=== PATIENT | male | born 1940 | race Caucasian/White ===

== ENCOUNTER 2016-11-29 17:27 | Inpatient (IN) ==
[2016-11-29] MEDS ORDERED: 0.9 % Sodium Chloride 1,000 ML IVC ONE ×2 (17:29→18:20)
[2016-11-29] MEDS ORDERED: Ipratropium/Albuterol Neb 3 ML IH ONE (17:32)
--- NOTE | 2016-11-29 17:32 | Emergency Department Note ---
Disposition Clinical Impression: Sepsis syndrome, Elevated lactic acid level, Alcoholic ketoacidosis, Hypoglycemia Acute renal failure Qualifiers: Acute renal failure type: unspecified Qualified Code(s): N17.9 - Acute kidney failure, unspecified Alcohol intoxication Qualifiers: Complication of substance-induced condition: uncomplicated Qualified Code(s): F10.120 - Alcohol abuse with intoxication, uncomplicated Disposition: Admitted As Inpatient Condition: Fair Referrals: Aretha Whittington, [employer] [Primary Care Provider] - Forms: Work/School Release, ED Satisfaction Letter General Adult HPI - General Chief complaint: ED General Medical Stated complaint: alcohol intake Time Seen by Provider: 11/29/16 17:29 Source: patient, EMS Mode of arrival: EMS Limitations: altered mental status, physical limitation, age Nursing Notes Reviewed: Yes Vital Signs Reviewed: Yes - History of Present Illness HPI Narrative: Patient was on the floor and his hot trailer. A friend called EMS for his evaluation. He reportedly had 2 large bottles of vodka nearby and his friend had said that he had been drinking heavily daily. The patient has reported no pain but indicated he had not been able to get up for hours. History is limited on this patient with his trach and decreased verbal ability. He is able to answer yes no questions well. He denies headache, visual changes or shortness of breath. He has had a cough. He denies chest pain, abdominal pain , vomiting or diarrhea. He denies any pain to his head, neck, back, upper extremities or to his lower extremities. Patient was saturating at about 78% for the squad. They have had him on a mask with high flow and he is continued with similar saturations. It appears on arrival that most of his respiration is via his tracheal stoma. Onset (ago): hour(s) Pain Scale: 0 Improves with: nothing Worsens with: nothing Associated symptoms: Reports: malaise, shortness of breath, weakness. Denies: confusion, chest pain, cough, diaphoresis, fever/chills, headaches, loss of appetite, nausea/vomiting, rash, seizure, syncope Treatments Prior to Arrival: none - Related Data Home Medications Medication Instructions Recorded Confirmed Amiodarone [Cordarone] 200 mg GTUBE BID 03/20/15 04/21/16 Aspirin 81 mg GTUBE DAILY 03/20/15 04/21/16 Metoprolol [Lopressor] 25 mg GTUBE BID 03/20/15 11/29/16 Ferrous Sulfate [Iron] 325 mg GTUBE DAILY 11/29/16 11/29/16 Levothyroxine [Synthroid] 125 mcg GTUBE DAILY@0630 11/29/16 11/29/16 Lisinopril [Zestril] 10 mg GTUBE DAILY 11/29/16 11/29/16 Previous Rx's Medication Instructions Recorded ALPRAZolam [Xanax 0.5 MG Tablet] 0.5 mg PO Q6H PRN #12 tablet 04/11/16 Azithromycin [Zithromax] 250 mg PO DAILY #5 tablet 04/11/16 Cefuroxime PO [Ceftin] 500 mg PO Q12HR #10 tablet 04/11/16 Lactobacillus [Culturelle] 1 each PO BID #10 cap.sprink 04/11/16 Allergies Allergy/AdvReac Type Severity Reaction Status Date / Time No Known Allergies Allergy Verified 10/04/15 15:14 All systems ED: reviewed and negative except as stated. Past Medical History - Past Medical History Attestation: Yes The following information was validated with the patient. Source: patient, old records reviewed, nursing notes reviewed Medical history: Reports: arthritis, atrial fibrillation, cancer, COPD, coronary artery disease, hypertension, myocardial infarction, other Surgical history: Reports: orthopedic, other, pacemaker/AICD, other ( Tracheostomy, G-tube) Psychiatric history: Reports: no psych history - Social History Smoking Status: Former smoker Smokeless Tobacco Status: No Alcohol use: Reports: heavy, recent Drug use: Reports: none Physical Exam - General Limitations: physical limitation, age General appearance: alert, appears intoxicated - Head Head exam: atraumatic, normocephalic, normal inspection - Eye Eye exam: Present: normal appearance, PERRL, EOMI. Absent: scleral icterus, conjunctival injection - ENT ENT exam: normal exam, normal oropharynx, mucous membranes moist - Neck Neck exam: Present: full ROM, other (There is a lot of dried yellow mucus around his tracheal stoma. There is a lot of also a lot of dry mucous down across the left upper chest.) - Chest Chest inspection: Present: normal inspection, symmetric chest wall rise. Absent : tenderness - Respiratory Respiratory exam: Present: prolonged expiratory phase, other (Rattling respiration auscultation consistent with the tracheal secretions heard at bedside.). Absent: respiratory distress, wheezes - Cardiovascular Cardiovascular exam: Present: tachycardia, irregular rhythm, normal heart sounds - Abdominal Exam Abdominal exam: Present: soft, Non-Tender, normal bowel sounds, other (G-tube intact without any inflammation or drainage.). Absent: tenderness, distention, guarding, rebound, rigidity - Extremities Exam Extremities exam: Present: normal inspection, full ROM, normal capillary refill , other (Patient holds the right leg slightly externally rotated. He has no pain with passive or active range of motion with either lower extremity. Similarly he is able to move both upper extremities were without difficulty with motion nor pain with palpation.). Absent: tenderness, pedal edema, calf tenderness - Expanded Lower Extremity Exam Neurovascular/Tendon exam: Present: normal capillary refill. Absent: motor deficit, sensory deficit, tendon deficit Gait: not tested/not observed - Back Exam Back exam: Present: normal inspection, full ROM. Absent: tenderness, vertebral tenderness - Neurological Exam Neurological exam: Present: alert. Absent: motor sensory deficit - Psychiatric Psychiatric exam: Present: normal affect, normal mood - Skin Skin exam: Present: warm, dry, intact, normal color. Absent: cyanosis, diaphoresis Course Course Narrative: 174: With tracheal suctioning and applying oxygen across his tracheostomy stoma , his saturations up to 95%, heart rate 85 and blood pressure 98/53. Copious respiratory secretions have been suctioned. 182: With return of lab, EKG and imaging, it is clear the patient will need to be admitted for continued hydration to correct his metabolic status. He will need to be watched closely for alcohol withdrawal. With the elevated white count, lactic acid and as well as Rocephin and azithromycin. A page has been placed to Dr. Mckeon for the inpatient care of this patient. Vital Signs Temperature 98.2 F 11/29/16 17:29 Pulse Rate 88 11/29/16 17:29 Respiratory Rate 24 11/29/16 17:29 Blood Pressure 92/48 11/29/16 17:29 O2 Sat by Pulse Oximetry 80 11/29/16 17:29 Temperature 98.2 F 11/29/16 17:29 Pulse Rate 88 11/29/16 17:29 Respiratory Rate 24 11/29/16 17:29 Blood Pressure 92/48 11/29/16 17:29 O2 Sat by Pulse Oximetry 80 11/29/16 17:29 Oxygen Delivery Oxygen Delivery Nasal Cannula Medical Decision Making - Medical Records Medical records reviewed: Yes I reviewed the patient's medical records. - Lab Data Lab results reviewed: Yes I reviewed the patient's lab results. Result diagrams: 11/29/16 17:40 11/29/16 17:40 Lab Results 11/29/16 11/29/16 11/29/16 Range/Units 17:40 17:40 17:40 WBC 19.9 H (4.3-11.1) K/mcL RBC 3.72 L (4.19-5.50) M/mcL Hgb 13.2 (12.9-16.9) g/dL Hct 39.2 (37.5-50.1) % MCV 105.4 H (83.0-100.0) fL MCH 35.5 H (28.0-33.3) pg MCHC 33.7 (31.6-35.5) g/dL RDW 13.8 (11.5-14.5) % Plt Count 282 (140-400) K/mcL MPV 10.8 (9.4-12.4) fL Immature Gran % 0.8 (0-4) % Seg Neutrophils % 92.2 % Lymphocytes % 1.4 % Monocytes % 5.4 % Eosinophils % 0.0 % Basophils % 0.2 % Neutrophils # 18.4 H (1.6-8.9) K/mcL Lymphocytes # 0.3 L (0.6-4.6) K/mcL Monocytes # 1.1 (0.0-1.3) K/mcL Eosinophils # 0.0 (0.0-0.6) K/mcL Basophils # 0.0 (0.0-0.2) K/mcL PT 10.9 (9.4-12.1) Seconds INR 1.0 APTT 29.1 (26.0-36.0) Seconds ABG pH (7.32-7.45) pH Units ABG pCO2 (35-45) mmHg ABG pO2 (85-104) mmHg ABG HCO3 (21-27) mEQ/L ABG Total CO2 (20-26) mEq/L ABG O2 Saturation (95-98) % ABG Base Excess (-2.0 to 3.0) mEq/L VBG Lactic Acid (0.5-2.2) mmol/L Respiration Rate Liter Flow L/MIN Blood Gas Modality Sodium 138 (136-145) mEq/L Potassium 4.7 H (3.5-4.5) mEq/L Chloride 97 L (98-109) mEq/L Carbon Dioxide 15 L (19-29) mEq/L BUN 32 H (8-26) mg/dL Creatinine 1.80 H (0.72-1.25) mg/dL Est GFR ( Amer) 44 L (> 60) Est GFR (Non-Af Amer) 37 L (> 60) BUN/Creatinine Ratio 18 (6-26) Glucose 43 L (70-99) mg/dL Calculated Osmolality 290 (280-300) Calcium 8.8 (8.6-10.8) mg/dL Total Bilirubin 1.1 (0.2-1.2) mg/dL Direct Bilirubin 0.5 (0.0-0.5) mg/dL Indirect Bilirubin 0.6 (0.0-1.2) mg/dL AST 57 H (5-34) Units/L ALT 33 (0-55) Units/L Alkaline Phosphatase 99 (38-126) Units/L Creatine Kinase (30-200) Units/L Troponin I (0-0.03) ng/mL Serum Total Protein 7.3 (6.0-8.3) g/dL Albumin 3.5 (3.5-5.0) g/dL Globulin 3.8 H (2.4-3.5) g/dL Albumin/Globulin Ratio 0.9 L (1.1-2.2) Ethyl Alcohol 324 H (0-10) mg/dL 11/29/16 11/29/16 11/29/16 Range/Units 17:40 17:40 17:40 WBC (4.3-11.1) K/mcL RBC (4.19-5.50) M/mcL Hgb (12.9-16.9) g/dL Hct (37.5-50.1) % MCV (83.0-100.0) fL MCH (28.0-33.3) pg MCHC (31.6-35.5) g/dL RDW (11.5-14.5) % Plt Count (140-400) K/mcL MPV (9.4-12.4) fL Immature Gran % (0-4) % Seg Neutrophils % % Lymphocytes % % Monocytes % % Eosinophils % % Basophils % % Neutrophils # (1.6-8.9) K/mcL Lymphocytes # (0.6-4.6) K/mcL Monocytes # (0.0-1.3) K/mcL Eosinophils # (0.0-0.6) K/mcL Basophils # (0.0-0.2) K/mcL PT (9.4-12.1) Seconds INR APTT (26.0-36.0) Seconds ABG pH (7.32-7.45) pH Units ABG pCO2 (35-45) mmHg ABG pO2 (85-104) mmHg ABG HCO3 (21-27) mEQ/L ABG Total CO2 (20-26) mEq/L ABG O2 Saturation (95-98) % ABG Base Excess (-2.0 to 3.0) mEq/L VBG Lactic Acid 6.1 H* (0.5-2.2) mmol/L Respiration Rate Liter Flow L/MIN Blood Gas Modality Sodium (136-145) mEq/L Potassium (3.5-4.5) mEq/L Chloride (98-109) mEq/L Carbon Dioxide (19-29) mEq/L BUN (8-26) mg/dL Creatinine (0.72-1.25) mg/dL Est GFR ( Amer) (> 60) Est GFR (Non-Af Amer) (> 60) BUN/Creatinine Ratio (6-26) Glucose (70-99) mg/dL Calculated Osmolality (280-300) Calcium (8.6-10.8) mg/dL Total Bilirubin (0.2-1.2) mg/dL Direct Bilirubin (0.0-0.5) mg/dL Indirect Bilirubin (0.0-1.2) mg/dL AST (5-34) Units/L ALT (0-55) Units/L Alkaline Phosphatase (38-126) Units/L Creatine Kinase 61 (30-200) Units/L Troponin I 0.02 (0-0.03) ng/mL Serum Total Protein (6.0-8.3) g/dL Albumin (3.5-5.0) g/dL Globulin (2.4-3.5) g/dL Albumin/Globulin Ratio (1.1-2.2) Ethyl Alcohol (0-10) mg/dL 11/29/16 Range/Units 18:00 WBC (4.3-11.1) K/mcL RBC (4.19-5.50) M/mcL Hgb (12.9-16.9) g/dL Hct (37.5-50.1) % MCV (83.0-100.0) fL MCH (28.0-33.3) pg MCHC (31.6-35.5) g/dL RDW (11.5-14.5) % Plt Count (140-400) K/mcL MPV (9.4-12.4) fL Immature Gran % (0-4) % Seg Neutrophils % % Lymphocytes % % Monocytes % % Eosinophils % % Basophils % % Neutrophils # (1.6-8.9) K/mcL Lymphocytes # (0.6-4.6) K/mcL Monocytes # (0.0-1.3) K/mcL Eosinophils # (0.0-0.6) K/mcL Basophils # (0.0-0.2) K/mcL PT (9.4-12.1) Seconds INR APTT (26.0-36.0) Seconds ABG pH 7.23 L (7.32-7.45) pH Units ABG pCO2 39 (35-45) mmHg ABG pO2 55 L (85-104) mmHg ABG HCO3 16.6 L (21-27) mEQ/L ABG Total CO2 17.8 L (20-26) mEq/L ABG O2 Saturation 83 L (95-98) % ABG Base Excess -10.9 L (-2.0 to 3.0) mEq/L VBG Lactic Acid (0.5-2.2) mmol/L Respiration Rate 22 Liter Flow 2.5 L/MIN Blood Gas Modality T mask Sodium (136-145) mEq/L Potassium (3.5-4.5) mEq/L Chloride (98-109) mEq/L Carbon Dioxide (19-29) mEq/L BUN (8-26) mg/dL Creatinine (0.72-1.25) mg/dL Est GFR ( Amer) (> 60) Est GFR (Non-Af Amer) (> 60) BUN/Creatinine Ratio (6-26) Glucose (70-99) mg/dL Calculated Osmolality (280-300) Calcium (8.6-10.8) mg/dL Total Bilirubin (0.2-1.2) mg/dL Direct Bilirubin (0.0-0.5) mg/dL Indirect Bilirubin (0.0-1.2) mg/dL AST (5-34) Units/L ALT (0-55) Units/L Alkaline Phosphatase (38-126) Units/L Creatine Kinase (30-200) Units/L Troponin I (0-0.03) ng/mL Serum Total Protein (6.0-8.3) g/dL Albumin (3.5-5.0) g/dL Globulin (2.4-3.5) g/dL Albumin/Globulin Ratio (1.1-2.2) Ethyl Alcohol (0-10) mg/dL - Radiology Data Radiology results reviewed: Yes I reviewed the patient's radiology results. Single view chest x-ray is performed. This demonstrated some patchy interstitial infiltrates and likely left-sided effusion. There is tenderness or pneumothorax, heart failure or abnormal cardiac silhouette. This is underlying interpretation. Impressions Chest X-Ray 11/29/16 17:29 IMPRESSION: Stable appearance to the chest demonstrating diffuse increased interstitial markings suggesting a chronic interstitial lung process. No acute cardiopulmonary process is evident. D/ / 11/29/2016 18:16:53 Phani Harley MD / [email or web address] Interpreting Provider: Phani Harley MD - EKG Data EKG #1 EKG attestation: Yes I reviewed and interpreted this EKG. EKG shows normal: axis, intervals, ST-T waves Rate: tachycardia (102) Rhythm: A.Fib Terry/QRS: IVCD Interpretation: no acute changes Critical Care Time Critical Care Time: Yes Total Critical Care Time: 50 Attestation: As this patient did present with signs and symptoms of potential life- threatening illness requiring my urgent intervention, total critical care time in this patient's care has been 50 minutes, not withstanding separately reportable procedures.
[2016-11-29] MEDS ORDERED: *HR* Dextrose 50 % in Water (Syg) 50 ML SYRINGE IVP ONE (17:38)
[2016-11-29 17:49] LABS: Basophils % 0.2 %; Hematocrit 39.2 % (37.5-50.1); Hemoglobin 13.2 g/dL (12.9-16.9); Immature Granulocytes % 0.8 % (0-4); Lymphocytes # 0.3 K/mcL (0.6-4.6); Lymphocytes % 1.4 %; Mean Corpuscular HGB Conc 33.7 g/dL (31.6-35.5); Mean Corpuscular Hemoglobin 35.5 pg (28.0-33.3); Mean Corpuscular Volume 105.4 fL (83.0-100.0); Mean Platelet Volume 10.8 fL (9.4-12.4); Monocytes # 1.1 K/mcL (0.0-1.3); Monocytes % 5.4 %; Neutrophils # 18.4 K/mcL (1.6-8.9); Platelet Count 282 K/mcL (140-400); Red Blood Count 3.72 M/mcL (4.19-5.50); Red Cell Distribution Width 13.8 % (11.5-14.5); Segmented Neutrophils % 92.2 %
[2016-11-29 17:54] LABS: Prothrombin Time 10.9 Seconds (9.4-12.1)
[2016-11-29 17:57] LABS: Activated Partial Thrombo Time 29.1 Seconds (26.0-36.0)
[2016-11-29 18:07] LABS: Albumin 3.5 g/dL (3.5-5.0); Albumin/Globulin Ratio 0.9 (1.1-2.2); Bilirubin,Direct 0.5 mg/dL (0.0-0.5); Bilirubin,Indirect 0.6 mg/dL (0.0-1.2); Bilirubin,Total 1.1 mg/dL (0.2-1.2); Calcium 8.8 mg/dL (8.6-10.8); Globulin 3.8 g/dL (2.4-3.5); Potassium 4.7 mEq/L (3.5-4.5); Total Protein 7.3 g/dL (6.0-8.3)
[2016-11-29 18:11] LABS: ABG Base Excess -10.9 mEq/L (-2.0 to 3.0); ABG HCO3 16.6 mEQ/L (21-27); ABG Oxygen Saturation 83 % (95-98); ABG PCO2 39 mmHg (35-45); ABG PH 7.23 pH Units (7.32-7.45); ABG PO2 55 mmHg (85-104); ABG TCO2 17.8 mEq/L (20-26)
[2016-11-29 18:12] LABS: Blood Gas Liter Flow 2.5 L/MIN; Blood Gas Respiration Rate 22
[2016-11-29] MEDS ORDERED: Azithromycin 500 MG in D5% in Water 250 ML IVPB SCH (18:17)
[2016-11-29] MEDS ORDERED: 0.9 % Sodium Chloride 1,000 ML IVC SCH (18:30)
[2016-11-29] MEDS ORDERED: Dextrose Gel 15 GM PO PRN ×2 (19:42)
[2016-11-29] MEDS ORDERED: Ondansetron 4 MG/2 ML VIAL IVP PRN (19:42)
[2016-11-29] MEDS ORDERED: *HR* LORazepam 2 MG/ML VIAL IVP PRN (19:42)
[2016-11-29] MEDS ORDERED: D5% in Water 1,000 ML IVC PRN (19:42)
[2016-11-29] MEDS ORDERED: *HR* Promethazine 25 MG/ML VIAL IVP PRN (19:42)
[2016-11-29] MEDS ORDERED: Naloxone 0.4 MG/ML INJ IVP PRN (19:42)
[2016-11-29] MEDS ORDERED: *HR* Dextrose 50 % in Water (Syg) 50 ML SYRINGE IVP PRN (19:42)
[2016-11-29] MEDS: 0.9 % Sodium Chloride 1,000 ML IVC SCH (22:33)
[2016-11-30 06:05] LABS: BUN/Creatinine Ratio 25 (6-26); Blood Urea Nitrogen 24 mg/dL (8-26); Calcium 7.7 mg/dL (8.6-10.8); Carbon Dioxide 17 mEq/L (19-29); Chloride 105 mEq/L (98-109); Glucose 52 mg/dL (70-99); Osmolality,Calculated 289 (280-300); Potassium 4.3 mEq/L (3.5-4.5); Sodium 139 mEq/L (136-145); eGFR For African Americans > 60 (> 60); eGFR For Non-African Americans > 60 (> 60)
[2016-11-30] MEDS: 0.9 % Sodium Chloride 1,000 ML IVC SCH (06:14)
[2016-11-30] MEDS ORDERED: Pantoprazole 40 MG VIAL IVP SCH (07:30)
[2016-11-30] MEDS ORDERED: Ferrous Sulfate Oral Soln 300 MG/5 ML UDC GTUBE SCH (10:00)
--- NOTE | 2016-11-30 12:00 | Internal Med History&Physical ---
Date of Encounter: 11/30/16 Time of Encounter: 11:30 Assessment and Plan (1) Neutrophilic leukocytosis Current visit: No Status: Acute He has been started on Rocephin and Zithromax. I will add lactobacillus. Repeat chest CT will be done to follow-up on abnormalities seen on the March 2016 scan. (2) Alcohol intoxication Current visit: No Status: Acute We will give scheduled Xanax to lessen withdrawal. Qualifiers: Complication of substance-induced condition: uncomplicated Qualified Code(s ): F10.120 - Alcohol abuse with intoxication, uncomplicated (3) Macrocytosis Current visit: No Status: Chronic We will check TSH in a.m. B12 and folate were normal on 01/10/2015. (4) Elevated TSH Current visit: No Status: Acute As above (5) Acute renal failure Current visit: Yes Status: Acute Improved. Continue IV fluids and monitoring renal indices. Qualifiers: Acute renal failure type: unspecified Qualified Code(s): N17.9 - Acute kidney failure, unspecified (6) Hypoglycemia Current visit: Yes Status: Acute We will restart tube feedings and monitor blood sugar. Internal Medicine - H&P: HPI Chief complaint: Intoxication, infection Admitted From: Home Plans for Post Hospital Care: Home History of present illness: Mr. Bee is a 76 year old male who was brought to the emergency room after he was found on the floor of his home with decreased responsiveness. The emergency room report states there were empty vodka bottles beside him. He was found to have blood alcohol level of 324 mg percent and leukocytosis with left shift in emergency room. He was admitted to [facility] floor for ongoing care needs. He states he ingests vodka 2-3 times per week per G-tube. 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 He has an open stoma in his lower anterior neck and cannot phonate. He indicates he has soreness in his right anterolateral rib area. Past Med Surg Social Fam HX - Past Medical History Medical history: arthritis, atrial fibrillation, cancer, COPD, coronary artery disease, hypertension, myocardial infarction, other Psychiatric history: no psych history - Past Surgical History Surgical History: orthopedic, other, pacemaker/AICD, other - Social History Smoking Status: Former smoker Smokeless Tobacco Status: No Alcohol use: heavy, recent Drug use: none Internal Medicine - H&P: Meds Amiodarone [Cordarone] 200 mg GTUBE BID 03/20/15 [History] Aspirin 81 mg GTUBE DAILY 03/20/15 [History] Metoprolol [Lopressor] 25 mg GTUBE BID 03/20/15 [History] ALPRAZolam [Xanax 0.5 MG Tablet] 0.5 mg PO Q6H PRN #12 tablet 04/11/16 [Rx] Azithromycin [Zithromax] 250 mg PO DAILY #5 tablet 04/11/16 [Rx] Cefuroxime PO [Ceftin] 500 mg PO Q12HR #10 tablet 04/11/16 [Rx] Lactobacillus [Culturelle] 1 each PO BID #10 cap.sprink 04/11/16 [Rx] Ferrous Sulfate [Iron] 325 mg GTUBE DAILY 11/29/16 [History] Levothyroxine [Synthroid] 125 mcg GTUBE DAILY@0630 11/29/16 [History] Lisinopril [Zestril] 10 mg GTUBE DAILY 11/29/16 [History] Allergies No Known Allergies Allergy (Verified 10/04/15 15:14) All Systems PM: A 10-system review of systems was performed and is negative for pertinent findings except as documented above in the HPI. Review of systems: Gen.: His weight has decreased from 77.11 kg at the December 2014 hospitalization to 65.317 kg at present.. Cardiovascular: He has history of atrial fibrillation and uses amiodarone. He has hypertension and known ASHD status post SC 2007 with ICD placed in 2007. He has had left arm DVT in the distant past. He has a diagnosis of heart failure per old chart without further details available. He has not had known pulmonary embolism. Respiratory: He smoked from approximately age [age] up to 3 packs per day. He has COPD and used oxygen by trach mask in the past but states he does not have oxygen in the home any longer. He has an open stoma in his lower anterior neck area. 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 He is presumed cancer free. GI: He has no known disorder of his liver gallbladder or exocrine pancreas. He has a G-tube since he cannot swallow from previous cancer treatment to his neck. He had a G-tube replacement during the January 2015 [facility] hospitalization. : No history of hematuria dysuria or kidney stones Neurologic: No history of large distribution strokes or seizures Endocrine: Has no known diabetes thyroid disease or hyperlipidemia Hematology/oncology: He had squamous cell cancer as per above. He has no other known internal malignancies. He had anemia with workup December 2014 showing no factor deficiency. Anemia has now resolved. Psychiatric: He has no significant anxiety depression or other mental health issues Musk skeletal: He has history of DJD, gout, and vitamin D deficiency. - Constitutional Vitals: Temp Pulse Resp BP Pulse Ox 98.5 F 86 20 122/57 98 11/30/16 06:53 11/30/16 06:53 11/30/16 06:53 11/30/16 06:53 11/30/16 06:53 Exam: Gen.: He is a well-developed lean male who appears in no significant distress HEENT: Head shows left face and neck scarring from past radical neck dissection. Eyes: EOMI. There is no scleral icterus. Mouth: Mucosa is moist. Neck: He has an open stoma in the anterior lower neck with oxygen by trach mask in place. He has scarring and deformity of the left lateral neck area from previous surgery Heart: Tones are difficult to hear. Lungs: He has scattered rhonchi bilaterally. No inspiratory crackles are heard. Abdomen: G-tube is in place in the epigastric area. The abdomen is nontender to palpation Extremities: He has no cyanosis edema or clubbing noted. He is wearing MEHUL hose bilaterally which I did not remove. He has mild DJD changes of the hands. Neurologic: Mental status: He is able to answer questions by nodding or mouthing the answer. Cranial nerves: He has minimal facial movements. Tongue does not protrude well from past surgical changes. EOMI. Forehead wrinkles bilaterally. Motor: There is no pronator drift. Cerebellar: Finger to nose is intact bilaterally. Skin: Warm and dry. Internal Med - H&P Results - Labs CBC & Chem 7: 11/29/16 17:40 11/30/16 05:30 Labs: BMP 11/30/16 05:30 Sodium 139 Potassium 4.3 Chloride 105 Carbon Dioxide 17 L BUN 24 Creatinine 0.96 Glucose 52 L Calcium 7.7 L
[2016-11-30] MEDS ORDERED: Thiamine (B-1) 100 MG, Folic Acid 1 MG, MVI, adult with vitamin K 10 ML in 0.9 % Sodi... IVPB SCH (18:00)
[2016-11-30] MEDS ORDERED: *HR* Warfarin 4 MG TABLET PO SCH (18:00)
[2016-11-30] MEDS: Azithromycin 500 MG in D5% in Water 250 ML IVPB SCH (19:07)
[2016-11-30] MEDS: ALPRAZolam 0.25 MG TABLET GTUBE SCH (21:20)
[2016-11-30] MEDS: Lactobacillus 1 EACH CAP.SPRINK GTUBE SCH (21:20)
[2016-12-01] MEDS: Lactobacillus 1 EACH CAP.SPRINK GTUBE SCH ×3 (05:37→20:46)
[2016-12-01] MEDS: Acetaminophen 325 MG TABLET PO PRN (05:37)
[2016-12-01 06:13] LABS: Basophils % 0.2 %; Hematocrit 32.7 % (37.5-50.1); Immature Granulocytes % 0.6 % (0-4); Lymphocytes # 0.5 K/mcL (0.6-4.6); Lymphocytes % 3.8 %; Mean Corpuscular HGB Conc 33.6 g/dL (31.6-35.5); Mean Corpuscular Hemoglobin 35.4 pg (28.0-33.3); Mean Corpuscular Volume 105.1 fL (83.0-100.0); Monocytes # 1.1 K/mcL (0.0-1.3); Monocytes % 8.2 %; Neutrophils # 11.5 K/mcL (1.6-8.9); Platelet Count 210 K/mcL (140-400); Red Blood Count 3.11 M/mcL (4.19-5.50); Red Cell Distribution Width 14.3 % (11.5-14.5); Segmented Neutrophils % 87.2 %
[2016-12-01 06:36] LABS: Magnesium 1.7 mg/dL (1.6-2.6)
[2016-12-01 06:58] LABS: Thyroid Stimulating Hormone 15.138 mcIU/mL (0.350-4.840)
[2016-12-01] MEDS: ALPRAZolam 0.25 MG TABLET GTUBE SCH ×2 (08:54→20:46)
--- NOTE | 2016-12-01 14:28 | Internal Med Progress Note ---
Date of Encounter: 12/01/16 Time of Encounter: 14:20 - Assessment and plan (1) Neutrophilic leukocytosis Current Visit: No Status: Acute Assessment and plan: December 01. Improved. Continue Rocephin and Zithromax with lactobacillus. The chest CT showed no acute pathology. (2) Alcohol intoxication Current Visit: No Status: Acute Assessment and plan: December 01. Continue scheduled Xanax Qualifiers: Complication of substance-induced condition: uncomplicated Qualified Code(s ): F10.120 - Alcohol abuse with intoxication, uncomplicated (3) Macrocytosis Current Visit: No Status: Chronic Assessment and plan: December 01. TSH was elevated. Will increase Synthroid dose. Question if he was taking it regularly at home. (4) Elevated TSH Current Visit: No Status: Acute Assessment and plan: December 01. As above. (5) Acute renal failure Current Visit: Yes Status: Suspected Assessment and plan: December 01. Resolved. Qualifiers: Acute renal failure type: unspecified Qualified Code(s): N17.9 - Acute kidney failure, unspecified (6) Hypoglycemia Current Visit: Yes Status: Acute Assessment and plan: December 01. Resolved (7) Hypophosphatemia Current Visit: Yes Status: Acute Assessment and plan: December 01. Will order Neutra-Phos and recheck labs in a.m. - Subjective Interval history: December 01. He has no new complaints and states he feels better. - Constitutional Vitals: Temp Pulse Resp BP Pulse Ox 97.0 F L 68 20 120/78 97 12/01/16 14:18 12/01/16 14:18 12/01/16 14:18 12/01/16 14:18 12/01/16 14:18 Exam: He is resting comfortably in bed and appears comfortable. He answers questions appropriately. He states he does not want to go to a jail but wishes to return home. I reviewed his medications and lab results. Internal Medicine: Result - Labs CBC & Chem 7: 12/01/16 05:01 11/30/16 05:30 Labs: Short CBC 12/01/16 Range/Units 05:01 WBC 13.2 H (4.3-11.1) K/mcL Hgb 11.0 L D (12.9-16.9) g/dL Hct 32.7 L (37.5-50.1) % Plt Count 210 (140-400) K/mcL Neutrophils # 11.5 H (1.6-8.9) K/mcL - ABG Interpretation ABG results: ABG ABG pH 7.23 pH Units (7.32-7.45) L 11/29/16 18:00 ABG pCO2 39 mmHg (35-45) 11/29/16 18:00 ABG pO2 55 mmHg (85-104) L 11/29/16 18:00 ABG O2 Saturation 83 % (95-98) L 11/29/16 18:00 PT/INR, D-dimer PT 10.9 Seconds (9.4-12.1) 11/29/16 17:40 - VTE Documentation of Mechanical Device: Graduated compression elastic hosiery Consult Discharge Plan - Plan Referrals: Aretha Whittington, [employer] [Primary Care Provider] - 1 week
--- NOTE | 2016-12-01 16:43 | Electrocardiograph Report ---
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
[2016-12-01] MEDS ORDERED: *HR* Warfarin 2 MG TABLET PO SCH (18:00)
[2016-12-01] MEDS: 0.9 % Sodium Chloride 1,000 ML IVC SCH (19:21)
[2016-12-01] MEDS: Azithromycin 500 MG in D5% in Water 250 ML IVPB SCH (20:47)
[2016-12-02] MEDS: Acetaminophen 325 MG TABLET PO PRN (05:39)
[2016-12-02 05:57] LABS: Basophils % 0.1 %; Eosinophils % 0.4 %; Hematocrit 31.7 % (37.5-50.1); Hemoglobin 10.5 g/dL (12.9-16.9); Immature Granulocytes % 0.4 % (0-4); Lymphocytes # 0.5 K/mcL (0.6-4.6); Lymphocytes % 5.1 %; Mean Corpuscular HGB Conc 33.1 g/dL (31.6-35.5); Mean Corpuscular Hemoglobin 34.9 pg (28.0-33.3); Mean Corpuscular Volume 105.3 fL (83.0-100.0); Mean Platelet Volume 11.2 fL (9.4-12.4); Monocytes # 0.9 K/mcL (0.0-1.3); Monocytes % 8.6 %; Neutrophils # 8.8 K/mcL (1.6-8.9); Platelet Count 178 K/mcL (140-400); Red Blood Count 3.01 M/mcL (4.19-5.50); Red Cell Distribution Width 14.3 % (11.5-14.5); Segmented Neutrophils % 85.4 %
[2016-12-02 06:14] LABS: BUN/Creatinine Ratio 17 (6-26); Blood Urea Nitrogen 9 mg/dL (8-26); Calcium 7.8 mg/dL (8.6-10.8); Carbon Dioxide 23 mEq/L (19-29); Chloride 106 mEq/L (98-109); Glucose 94 mg/dL (70-99); Osmolality,Calculated 288 (280-300); Potassium 3.7 mEq/L (3.5-4.5); Sodium 140 mEq/L (136-145); eGFR For African Americans > 60 (> 60); eGFR For Non-African Americans > 60 (> 60)
[2016-12-02] MEDS: Lactobacillus 1 EACH CAP.SPRINK GTUBE SCH ×2 (09:09→20:08)
[2016-12-02] MEDS: ALPRAZolam 0.25 MG TABLET GTUBE SCH ×2 (09:09→20:08)
--- NOTE | 2016-12-02 14:29 | Discharge Summary ---
Date of Encounter: 12/02/16 Time of Encounter: 14:20 - Discharge Diagnosis (1) Neutrophilic leukocytosis Priority: Primary Status: Acute (2) Alcohol intoxication Priority: Secondary Status: Resolved Qualifiers: Complication of substance-induced condition: uncomplicated Qualified Code(s ): F10.120 - Alcohol abuse with intoxication, uncomplicated (3) Hypothyroid Priority: Secondary Status: Chronic Qualifiers: Hypothyroidism type: unspecified Qualified Code(s): E03.9 - Hypothyroidism , unspecified (4) Macrocytosis Priority: Secondary Status: Chronic (5) Acute renal failure Priority: Secondary Status: Resolved Qualifiers: Acute renal failure type: unspecified Qualified Code(s): N17.9 - Acute kidney failure, unspecified (6) Hypoglycemia Priority: Secondary Status: Resolved (7) Hypophosphatemia Priority: Secondary Status: Resolved - Discharge Medications Prescriptions: ALPRAZolam [Xanax 0.25 MG Tablet] 0.25 mg GTUBE BID #6 tablet Azithromycin [Zithromax Susp] 200 mg PO DAILY #15 ml Cefuroxime Axetil [Ceftin] 250 mg PO BID #60 mls Lactobacillus [Culturelle] 1 each PO BID #6 cap.sprink Levothyroxine [Synthroid] 150 mcg PO DAILY #30 tablet Home Medications: Amiodarone [Cordarone] 200 mg GTUBE BID 03/20/15 [History] Aspirin 81 mg GTUBE DAILY 03/20/15 [History] Metoprolol [Lopressor] 25 mg GTUBE BID 03/20/15 [History] Ferrous Sulfate [Iron] 325 mg GTUBE DAILY 11/29/16 [History] Lisinopril [Zestril] 10 mg GTUBE DAILY 11/29/16 [History] ALPRAZolam [Xanax 0.25 MG Tablet] 0.25 mg GTUBE BID #6 tablet 12/02/16 [Rx] Azithromycin [Zithromax Susp] 200 mg PO DAILY #15 ml 12/02/16 [Rx] Cefuroxime Axetil [Ceftin] 250 mg PO BID #60 mls 12/02/16 [Rx] Lactobacillus [Culturelle] 1 each PO BID #6 cap.sprink 12/02/16 [Rx] Levothyroxine [Synthroid] 150 mcg PO DAILY #30 tablet 12/02/16 [Rx] Allergies/Adverse Reactions: Allergies No Known Allergies Allergy (Verified 10/04/15 15:14) Procedures/tests Complete & Pending: Procedures Performed prior 72 hours Category Date Time Status CT chest wo con [CT] Routine Cat Scan 11/30/16 12:11 Completed Date of admission: 11/29/16 19:42 Primary care physician: Aretha Whittington CNP - Patient Status Disposition: Home Health Service Condition: Fair Functional capacity at discharge: uses cane/walker Overall status at discharge: patient is progressing back to baseline - Discharge Instructions Follow Up With: Aretha Whittington CNP [Primary Care Provider] - 1 week - Diet and Activity Activity: resume usual activities as tolerated Diet: advance to your usual diet Hospital course: Mr. Bee is a 76 year old male who was brought to the emergency room after he was found on the floor of his home with decreased responsiveness. The emergency room report states there were empty vodka bottles beside him. He was found to have blood alcohol level of 324 mg percent and leukocytosis with left shift in emergency room. He was admitted to [facility] for ongoing care needs. Initial orders were written by the emergency room physician. I saw him on November 30 and performed a history and physical. He was started on Rocephin and Zithromax with lactobacillus. Chest CT showed no acute pathology. He had clinical improvement with WBC normalizing to 10.3 K and segs decreasing to 85.4 % on December 02. He will continue with Ceftin and Zithromax with lactobacillus for 3 additional days after discharge. He was given IV fluids and his azotemia resolved with BUN and creatinine being 9 and 0.54 respectively on the day of discharge. He was able tolerate tube feedings of Jevity without difficulty. TSH returned elevated at 15.138. His Synthroid dose was increased to 150 g daily. Lactic acid returned to normal at level of 1.7 on November 30. Hemoglobin decreased slightly to 10.5 with IV fluids. Anemia testing showed serum iron 36, transferrin saturation 15%, transferrin 170, and ferritin 433. He declined offers to be placed in a correction facility. He stated he wanted to go home. He will be discharged to follow with his PCP within one week. - Time Spent with Patient Total time spent providing and/or coordinating discharge services: - Constitutional Vitals: Temp Pulse Resp BP Pulse Ox 97.3 F L 66 18 154/86 99 06/20/17 11:23 12/02/16 11:23 12/02/16 11:23 12/02/16 11:23 12/02/16 11:23 - VTE Documentation of Mechanical Device: Graduated compression elastic hosiery
--- NOTE | 2016-12-02 14:48 | Physician Discharge Referral ---
Home Health/Hosp Referral Info Transfer to: Home Health Attending Provider: Mike Provider in Charge Post Discharge: PCP (Aretha Whittington CNP) - Diagnosis (1) Neutrophilic leukocytosis Priority: Primary Status: Acute (2) Alcohol intoxication Priority: Secondary Status: Resolved (3) Hypothyroid Priority: Secondary Status: Chronic (4) Macrocytosis Priority: Secondary Status: Chronic (5) Acute renal failure Priority: Secondary Status: Resolved (6) Hypoglycemia Priority: Secondary Status: Resolved (7) Hypophosphatemia Priority: Secondary Status: Resolved - Respiratory Orders Oxygen / L per min (Trach mask oxygen as at home.) Smoking Cessation: Smoking cessation has been advised. For more information, call the [place] Tobacco Quit Line at 9-793-FCOG-NOW. - Activity Activity Orders: Ambulate - Services Needed Following services are medically necessary services: Nursing, Home Health Aide, Physical Therapy, Occupational Therapy - Transfer Medications Prescriptions: ALPRAZolam [Xanax 0.25 MG Tablet] 0.25 mg GTUBE BID #6 tablet Azithromycin [Zithromax Susp] 200 mg PO DAILY #15 ml Cefuroxime Axetil [Ceftin] 250 mg PO BID #60 mls Lactobacillus [Culturelle] 1 each PO BID #6 cap.sprink Levothyroxine [Synthroid] 150 mcg PO DAILY #30 tablet Home Medications: Amiodarone [Cordarone] 200 mg GTUBE BID 03/20/15 [History] Aspirin 81 mg GTUBE DAILY 03/20/15 [History] Metoprolol [Lopressor] 25 mg GTUBE BID 03/20/15 [History] Ferrous Sulfate [Iron] 325 mg GTUBE DAILY 11/29/16 [History] Lisinopril [Zestril] 10 mg GTUBE DAILY 11/29/16 [History] ALPRAZolam [Xanax 0.25 MG Tablet] 0.25 mg GTUBE BID #6 tablet 12/02/16 [Rx] Azithromycin [Zithromax Susp] 200 mg PO DAILY #15 ml 12/02/16 [Rx] Cefuroxime Axetil [Ceftin] 250 mg PO BID #60 mls 12/02/16 [Rx] Lactobacillus [Culturelle] 1 each PO BID #6 cap.sprink 12/02/16 [Rx] Levothyroxine [Synthroid] 150 mcg PO DAILY #30 tablet 12/02/16 [Rx] Allergies/Adverse Reactions: Allergies No Known Allergies Allergy (Verified 10/04/15 15:14) Certification: Further, I certify that my clinical findings support that this patient is homebound (i.e. absences from home require considerable and taxing effort and are for medical reasons or nondenominational services or infrequently or short duration when for other reasons) because: Homebound Reason: Leaving home requires considerable and taxing effort due to condition (COPD, impaired walking ability.) Attestation: My signature below is to certify that this patient is under my care and that I, or nurse practitioner, or a physician's children's nursery assistant working with me, has a face-to -face encounter with this patient.
[2016-12-02] MEDS: Azithromycin 500 MG in D5% in Water 250 ML IVPB SCH (19:09)
[2016-12-02 20:37] VITALS: BP 128/70
== END 2016-12-02 21:00 | disposition home health service (06) | DRG 683 ==
LOC: EMEROOPIK 17:27 → INPPIK 17:27
PROVIDERS: ADMIT Internal Medicine; ATTEND Internal Medicine

== ENCOUNTER 2017-01-16 07:34 | Observation (INO) ==
--- NOTE | 2017-01-16 07:44 | Emergency Department Note ---
Disposition Clinical Impression: History of fall, Multiple contusions, History of alcohol abuse Fracture of humerus Qualifiers: Encounter type: initial encounter Fracture type: closed Fracture morphology: unspecified fracture morphology Fracture alignment: displaced Laterality: left Qualified Code(s): S42.212A - Fractured elbow Qualifiers: Encounter type: initial encounter Fracture type: closed Laterality: left Qualified Code(s): S42.402A - Unspecified fracture of lower end of left humerus , initial encounter for closed fracture Fracture, ankle Qualifiers: Encounter type: initial encounter Fracture type: closed Laterality: right Qualified Code(s): S82.891A - Other fracture of right lower leg, initial encounter for closed fracture Disposition: Admitted As Inpatient Condition: Fair [facility] HPI - General Chief Complaint: ED Extremity Injury, Upper Stated Complaint: pain to left elbow, fall Time Seen by Provider: 01/16/17 07:42 Source: patient, EMS Mode of arrival: EMS Limitations: physical limitation, age Nursing Notes Reviewed: Yes Vital Signs Reviewed: Yes - History of Present Illness HPI Narrative: Patient has been brought in this morning by EMS with complaint of pain in the lateral right ankle and also pain to left upper extremity and left upper extremity disuse. He reportedly had been intoxicated on alcohol yesterday evening and had been trying transfer from his wheelchair and fell. He was able to be helped up into bed. This morning he had more pain to his left arm with disuse in the right ankle pain prompting his transport in for evaluation. He denies head pain or injury to his head. He denies neck pain, back pain, chest pain, shortness breath or abdominal pain. His history is limited given his very difficult speech with a tracheostomy. He will move his arm and his legs around to demonstrate that they have full range of motion with exception of left arm. He holds down at his side. He will move the left wrist without difficulty, the left elbow with distance from of the right arm and resists any motion of the right shoulder. Patient has a long history of alcoholism and will take vodka through his G-tube. Pt Subjective Complaint: fall Onset (ago): hour(s) (12) Fall From: wheelchair Fall Witnessed: yes Place Fall Occurred: home Loss of Consciousness: none Symptoms Prior to Fall: none Context: tripped/slipped, alcohol use, history of frequent falls Location of injury - extremities: Left: shoulder, elbow, Right: ankle Severity: moderate Quality: dull, aching Associated symptoms (after fall): Denies: headache, neck pain, numbness, weakness, chest pain, shortness of breath, abdominal pain, hematuria, lightheaded, vertigo, confusion - Related Data Home Medications Medication Instructions Recorded Confirmed Amiodarone [Cordarone] 200 mg GTUBE BID 03/20/15 01/16/17 Aspirin 81 mg GTUBE DAILY 03/20/15 01/16/17 Metoprolol [Lopressor] 25 mg GTUBE BID 03/20/15 01/16/17 Lisinopril [Zestril] 10 mg GTUBE DAILY 11/29/16 01/16/17 Previous Rx's Medication Instructions Recorded Levothyroxine [Synthroid] 150 mcg PO DAILY #30 tablet 12/02/16 ALPRAZolam [Xanax 0.25 MG Tablet] 0.25 mg GTUBE BID #60 tablet 01/16/17 HYDROcodone/Acet 5/325 mg [[place] 1 tab GTUBE Q4H PRN #120 tab 01/16/17 5-325 mg] Allergies Allergy/AdvReac Type Severity Reaction Status Date / Time No Known Allergies Allergy Verified 01/16/17 07:36 All systems ED: reviewed and negative except as stated. Fall PMH - Past Medical History Medical history: Reports: arthritis, atrial fibrillation, cancer, COPD, coronary artery disease, hypertension, myocardial infarction, other Surgical history: Reports: orthopedic, other, pacemaker/AICD, other Psychiatric history: Reports: no psych history - Social History Smoking Status: Former smoker Alcohol use: Reports: heavy, recent Drug use: Reports: none Physical Exam - General Limitations: physical limitation General appearance: alert, in no apparent distress - Head Head exam: atraumatic, normocephalic, normal inspection, other (Small abrasion on the left anterior scalp.) - Eye Eye exam: Present: normal appearance, PERRL, EOMI. Absent: scleral icterus, conjunctival injection - ENT ENT exam: normal exam, normal oropharynx, mucous membranes moist - Neck Neck exam: Present: normal inspection, full ROM, trachea midline. Absent: tenderness - Chest Chest inspection: Present: normal inspection, symmetric chest wall rise - Respiratory Respiratory exam: Present: normal lung sounds bilaterally, other (Moderate amount of yellow mucus from the patient's tracheostomy site.). Absent: respiratory distress, wheezes, prolonged expiratory phase - Cardiovascular Cardiovascular exam: Present: regular rate, normal rhythm, tachycardia, normal heart sounds - Abdominal Exam Abdominal exam: Present: soft, Non-Tender, normal bowel sounds, other (Patient has a G-tube intact in his abdomen.). Absent: tenderness, distention, guarding , rebound, rigidity - Expanded Upper Extremity Exam Shoulder exam: Present: normal inspection, other (Patient is with some tenderness to the anterior lateral aspect of the left deltoid region. There is reduced abduction, internal and external rotation. There is no overt deformity. There is no bruising present.). Absent: full ROM Elbow exam: Present: normal inspection, full ROM (Passive). Absent: tenderness , swelling, deformity, pain w/ pronation/supination, tenderness over radial head Forearm/Wrist exam: Present: normal inspection, full ROM. Absent: tenderness, swelling Hand exam: Present: normal inspection, full ROM. Absent: tenderness, swelling Vascular exam: Normal: capillary refill, radial pulse - Expanded Lower Extremity Exam Lower leg exam: Present: normal inspection, full ROM. Absent: tenderness, swelling Ankle exam: Present: normal inspection, full ROM, tenderness (Mild over the lateral side of the right ankle.). Absent: swelling, ecchymosis, deformity Foot/toe exam: Present: normal inspection, full ROM. Absent: tenderness, swelling, deformity Neurovascular/Tendon exam: Present: normal capillary refill. Absent: motor deficit, sensory deficit, tendon deficit Gait: not tested/not observed - Back Exam Back exam: Present: normal inspection, full ROM. Absent: tenderness, vertebral tenderness - Neurological Exam Neurological exam: Present: alert. Absent: motor sensory deficit - Psychiatric Psychiatric exam: Present: normal affect, normal mood - Skin Skin exam: Present: warm, dry, intact, normal color. Absent: diaphoresis, pallor Course Course Narrative: 08: The patient has an outstanding case with Adult Protective Services with an email from December 19 indicating they were contacted on over he comes to the emergency department. They have been working on emergent placement for his safety. We have paged to the adult protective counselor conductor symphonic orchestra to see if they have any plans for him. - Reevaluation(s) Reevaluation #1: Examination of the male reveals poorly kept male with large amount of green phlegm mucous secretions over the anterior chest region with swelling of the left arm pain at the shoulder and at the elbow on examination his Plus to 4 radial ulnar pulses noted he has decreased range of motion patient also has pain with palpation at the ankle joint with swelling and edema his lungs are coarse with rhonchi some of this is transmitted from the tracheal region heart regular rate and rhythm abdomen is soft. Positive bowel sounds as result of fractures the patient will be admitted for observation Adult Protective Services has been contacted hospital social worker physical therapy occupational therapy also consulted Vital Signs Temperature 98.6 F 01/16/17 07:36 Pulse Rate 109 01/16/17 07:36 Respiratory Rate 18 01/16/17 07:36 Blood Pressure 111/93 01/16/17 07:36 O2 Sat by Pulse Oximetry 96 01/16/17 07:36 Temperature 97.2 F L 01/16/17 14:48 Pulse Rate 98 01/16/17 14:48 Respiratory Rate 17 01/16/17 14:48 Blood Pressure 99/67 01/16/17 14:48 O2 Sat by Pulse Oximetry 95 01/16/17 14:48 Oxygen Delivery Oxygen Delivery Room Air Fall - Differential Diagnosis Likely: syncope, traumatic injury - Medical Records Medical records reviewed: Yes I reviewed the patient's medical records. - Lab Data Result diagrams: 01/16/17 08:29 01/16/17 08:29 Lab Results 01/16/17 01/16/17 01/16/17 Range/Units 08:29 08:29 08:29 WBC 9.3 (4.3-11.1) K/mcL RBC 3.48 L (4.19-5.50) M/mcL Hgb 12.0 L (12.9-16.9) g/dL Hct 36.1 L (37.5-50.1) % MCV 103.7 H (83.0-100.0) fL MCH 34.5 H (28.0-33.3) pg MCHC 33.2 (31.6-35.5) g/dL RDW 14.5 (11.5-14.5) % Plt Count 176 (140-400) K/mcL MPV 11.8 (9.4-12.4) fL Immature Gran % 0.3 (0-4) % Seg Neutrophils % 88.2 % Lymphocytes % 3.3 % Monocytes % 8.0 % Eosinophils % 0.0 % Basophils % 0.2 % Neutrophils # 8.2 (1.6-8.9) K/mcL Lymphocytes # 0.3 L (0.6-4.6) K/mcL Monocytes # 0.8 (0.0-1.3) K/mcL Eosinophils # 0.0 (0.0-0.6) K/mcL Basophils # 0.0 (0.0-0.2) K/mcL PT 10.8 (9.4-12.1) Seconds INR 1.0 APTT 29.4 (26.0-36.0) Seconds Sodium 141 (136-145) mEq/L Potassium 4.6 H (3.5-4.5) mEq/L Chloride 102 (98-109) mEq/L Carbon Dioxide 21 (19-29) mEq/L BUN 22 (8-26) mg/dL Creatinine 0.73 (0.72-1.25) mg/dL Est GFR ( Amer) > 60 (> 60) Est GFR (Non-Af Amer) > 60 (> 60) BUN/Creatinine Ratio 30 H (6-26) Glucose 84 (70-99) mg/dL Calculated Osmolality 295 (280-300) Calcium 9.2 (8.6-10.8) mg/dL Total Bilirubin 1.6 H (0.2-1.2) mg/dL Direct Bilirubin 0.6 H (0.0-0.5) mg/dL Indirect Bilirubin 1.0 (0.0-1.2) mg/dL AST 30 (5-34) Units/L ALT 12 (0-55) Units/L Alkaline Phosphatase 92 (38-126) Units/L Serum Total Protein 7.6 (6.0-8.3) g/dL Albumin 3.7 (3.5-5.0) g/dL Globulin 3.9 H (2.4-3.5) g/dL Albumin/Globulin Ratio 0.9 L (1.1-2.2) Amylase 20 L (25-125) Units/L Lipase 5 L (8-78) Units/L Ethyl Alcohol 28 H (0-10) mg/dL - Radiology Data Radiology results reviewed: Yes I reviewed the patient's radiology results. Three-view x-rays performed of the left shoulder. This demonstrates some cortical irregularities over the greater tuberosity. This appears degenerative but is not seen on previous imaging. This raised the possibility for avulsion fracture. This is on my interpretation. Two-view x-rays performed of the left elbow. This demonstrated prominent degenerative changes without evidence for acute fracture or dislocation. This is on my interpretation. Three-view x-rays performed of the right ankle. This demonstrated some degenerative changes of the distal fibula. The patient also appears to have a cortical disruption consistent with possible avulsion fracture. This is on my interpretation. ITS Impressions Ankle X-Ray 01/16/17 07:44 IMPRESSION: Slightly displaced distal fibular fracture with severe soft tissue swelling. Osteoporosis. D/ / Artemio Flores MD / Artemio Flores MD Interpreting Provider: Artemio Flores MD Shoulder X-Ray 01/16/17 07:45 IMPRESSION: Comminuted slightly displaced fracture of the greater tuberosity of the humerus. Osteoporosis. D/ / Artemio Flores MD / Artemio Flores MD Interpreting Provider: Artemio Flores MD Elbow X-Ray 01/16/17 07:46 IMPRESSION: Displaced intra-articular fracture of the lateral condyle of the left humerus. Large joint effusion. D/ / Artemio Flores MD / Artemio Flores MD Interpreting Provider: Artemio Flores MD Critical Care Time Critical Care Time: No S.B.A.R. - S.B.A.R. Situation: Demographics, MOA Background: Presenting Complaint, Relevant PMH, Meds, & Allergies Assessment: Vital Signs, Course and respsone to treatment, Exam Concerns, Patient/Family Expectation, Pertinant Lab Results, Outstanding Labs Recommendation: Barrier(s) to disposition, Recommendation based on pending studies, treatments, or consults S.B.A.R. Report Given to: Dr Emerald Rodriguez Repor Time: 08:15
[2017-01-16 08:39] LABS: Basophils % 0.2 %; Hematocrit 36.1 % (37.5-50.1); Immature Granulocytes % 0.3 % (0-4); Lymphocytes # 0.3 K/mcL (0.6-4.6); Lymphocytes % 3.3 %; Mean Corpuscular HGB Conc 33.2 g/dL (31.6-35.5); Mean Corpuscular Hemoglobin 34.5 pg (28.0-33.3); Mean Corpuscular Volume 103.7 fL (83.0-100.0); Mean Platelet Volume 11.8 fL (9.4-12.4); Monocytes # 0.8 K/mcL (0.0-1.3); Neutrophils # 8.2 K/mcL (1.6-8.9); Platelet Count 176 K/mcL (140-400); Red Blood Count 3.48 M/mcL (4.19-5.50); Red Cell Distribution Width 14.5 % (11.5-14.5); Segmented Neutrophils % 88.2 %
[2017-01-16 08:47] LABS: Prothrombin Time 10.8 Seconds (9.4-12.1)
[2017-01-16 08:50] LABS: Activated Partial Thrombo Time 29.4 Seconds (26.0-36.0)
[2017-01-16 08:56] LABS: Alanine Aminotransferase 12 Units/L (0-55); Albumin 3.7 g/dL (3.5-5.0); Albumin/Globulin Ratio 0.9 (1.1-2.2); Alkaline Phosphatase 92 Units/L (38-126); Amylase 20 Units/L (25-125); Aspartate Amino Transferase 30 Units/L (5-34); BUN/Creatinine Ratio 30 (6-26); Bilirubin,Direct 0.6 mg/dL (0.0-0.5); Bilirubin,Total 1.6 mg/dL (0.2-1.2); Blood Urea Nitrogen 22 mg/dL (8-26); Calcium 9.2 mg/dL (8.6-10.8); Carbon Dioxide 21 mEq/L (19-29); Chloride 102 mEq/L (98-109); Ethanol 28 mg/dL (0-10); Globulin 3.9 g/dL (2.4-3.5); Glucose 84 mg/dL (70-99); Lipase 5 Units/L (8-78); Osmolality,Calculated 295 (280-300); Potassium 4.6 mEq/L (3.5-4.5); Sodium 141 mEq/L (136-145); Total Protein 7.6 g/dL (6.0-8.3); eGFR For African Americans > 60 (> 60); eGFR For Non-African Americans > 60 (> 60)
[2017-01-16] MEDS ORDERED: Thiamine (B-1) 100 MG, Folic Acid 1 MG, MVI, adult with vitamin K 10 ML in 0.9 % Sodi... IVPB STA (10:06)
[2017-01-16] MEDS ORDERED: Ondansetron ODT 4 MG TAB.RAPDIS SL PRN (10:34)
[2017-01-16] MEDS ORDERED: 0.9 % Sodium Chloride 1,000 ML IVC SCH (10:34)
[2017-01-16] MEDS ORDERED: Naloxone 0.4 MG/ML INJ IVP PRN (10:34)
[2017-01-16] MEDS ORDERED: Azithromycin 500 MG in D5% in Water 250 ML IVPB SCH ×2 (11:00→14:00)
--- NOTE | 2017-01-16 12:32 | Internal Med History&Physical ---
Date of Encounter: 01/16/17 Time of Encounter: 12:05 Assessment and Plan (1) Fracture of humerus Current visit: Yes Status: Acute X-rays will be reviewed by physicians at [facility] with further intervention as recommended. Qualifiers: Encounter type: initial encounter Fracture type: closed Fracture morphology: unspecified fracture morphology Fracture alignment: displaced Laterality: left Qualified Code(s): S42.212A - Unspecified displaced fracture of surgical neck of left humerus, initial encounter for closed fracture (2) Fractured elbow Current visit: Yes Status: Acute As above Qualifiers: Encounter type: initial encounter Fracture type: closed Laterality: left Qualified Code(s): S42.402A - Unspecified fracture of lower end of left humerus, initial encounter for closed fracture (3) Fracture, ankle Current visit: Yes Status: Acute As above Qualifiers: Encounter type: initial encounter Fracture type: closed Laterality: right Qualified Code(s): S82.891A - Other fracture of right lower leg, initial encounter for closed fracture (4) Macrocytosis Current visit: 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 (5) Hypothyroid Current visit: No Status: Chronic We will check TSH in a.m. Qualifiers: Hypothyroidism type: unspecified Qualified Code(s): E03.9 - Hypothyroidism , unspecified Internal Medicine - H&P: HPI Chief complaint: Fall with fractures Admitted From: Home Plans for Post Hospital Care: Transfer [facility] History of present illness: Mr. Bee is a 76 year old male who sustained a fall while transferring between wheelchair and bed on December 15. He was intoxicated and did not seek medical attention at the time of the fall but awakened this morning with increasing pain in his left arm and right ankle. He was brought emergency room with x-rays showing slightly displaced distal right fibular fracture with soft tissue swelling. There was displaced intra-articular fracture of the lateral condyle of the left humerus with large joint effusion and comminuted slightly displaced fracture of the greater tuberosity. [facility] care [facility]. He was hospitalized last at [facility] November 2016 with leukocytosis. Etiology was not determined with certainty and he was discharged home with oral antibiotic. He ingests vodka regularly through his G-tube. 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 He has an open stoma in his lower anterior neck and can not phonate. Past Med Surg Social Fam HX - Past Medical History Medical history: arthritis, atrial fibrillation, cancer, COPD, coronary artery disease, hypertension, myocardial infarction, other Psychiatric history: no psych history - Past Surgical History Surgical History: orthopedic, other, pacemaker/AICD, other - Social History Smoking Status: Former smoker Smokeless Tobacco Status: No Alcohol use: heavy, recent Drug use: none Internal Medicine - H&P: Meds Amiodarone [Cordarone] 200 mg GTUBE BID 03/20/15 [History] Aspirin 81 mg GTUBE DAILY 03/20/15 [History] Metoprolol [Lopressor] 25 mg GTUBE BID 03/20/15 [History] Ferrous Sulfate [Iron] 325 mg GTUBE DAILY 11/29/16 [History] Lisinopril [Zestril] 10 mg GTUBE DAILY 11/29/16 [History] ALPRAZolam [Xanax 0.25 MG Tablet] 0.25 mg GTUBE BID #6 tablet 12/02/16 [Rx] Azithromycin [Zithromax Susp] 200 mg PO DAILY #15 ml 12/02/16 [Rx] Cefuroxime Axetil [Ceftin] 250 mg PO BID #60 mls 12/02/16 [Rx] Lactobacillus [Culturelle] 1 each PO BID #6 cap.sprink 12/02/16 [Rx] Levothyroxine [Synthroid] 150 mcg PO DAILY #30 tablet 12/02/16 [Rx] Allergies No Known Allergies Allergy (Verified 01/16/17 07:36) All Systems PM: A 10-system review of systems was performed and is negative for pertinent findings except as documented above in the HPI. Review of systems: Review of systems from his November [address] [facility] hospitalization were reviewed and revised as below. Gen.: His weight has decreased from 77.11 kg at the December 2014 hospitalization to 63.503 kg at present. Cardiovascular: He has history of atrial fibrillation and uses amiodarone. He has hypertension and known ASHD status post AR 2007 with ICD placed in 2007. He has had left arm DVT in the distant past. He has a diagnosis of heart failure per old chart without further details available. He has not had known pulmonary embolism. Respiratory: He smoked from approximately age [age] up to 3 packs per day. He has COPD and used oxygen by trach mask in the past but states he does not have oxygen in the home any longer. He has an open stoma in his lower anterior neck area. 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 He is presumed cancer free. Most recent chest CT was 11/30/2016. GI: He has no known disorder of his liver gallbladder or exocrine pancreas. He has a G-tube since he cannot swallow from previous cancer treatment to his neck. He had a G-tube replacement during the January 2015 [facility] hospitalization. : No history of hematuria dysuria or kidney stones Neurologic: No history of large distribution strokes or seizures Endocrine: He has no known diabetes or hyperlipidemia. He has hypothyroidism and TSH was elevated at 15.138 on 12/01/2016 during last hospitalization. Synthroid dose was increased to 150 g daily. 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 He has no other known internal malignancies. He had anemia with workup for iron deficiency 12/01/2016 showing iron 36, transferrin saturation 15%, transferrin 170, and ferritin 433. He 12 and folate were normal at 485 and 19.2 respectively on 01/10/2015. Psychiatric: He has no significant anxiety depression or other mental health issues Musk skeletal: He has history of DJD, gout, and vitamin D deficiency. - Constitutional Vitals: Temp Pulse Resp BP Pulse Ox 98.2 F 100 18 120/81 95 01/16/17 10:46 01/16/17 10:46 01/16/17 10:46 01/16/17 10:46 01/16/17 10:46 Exam: Gen.: He is well-developed lean male lying in bed who appears in minimal distress at present time HEENT: Head shows disfigurement in the lower left face and neck area from previous laryngeal cancer surgery and radiation treatment. Eyes: EOMI. There is no scleral icterus. Mouth: Mucosa is moist. Neck: He has an open stoma in his lower anterior neck. He has significant disfigurement of the left neck area from surgery and radiation as per above. Heart: Regular without murmurs gallops or ectopics Chest: An ICD pacemaker is in place in the left upper chest area. Lungs: Clear to auscultation anteriorly and laterally Abdomen: G-tube is in place in the epigastric area. The abdomen is soft and nontender Extremities: The left arm is in an immobilization sling. Right lower leg has an immobilization splint and wrap in place. Did not remove these. The right arm and left leg are unremarkable. There is no cyanosis or edema noted. Neurologic: Mental status: He is awake and nods appropriately to questions. I could not understand his speech. Cranial nerves: Facial movements are minimal and asymmetric because of left face surgical changes. EOMI. Forehead wrinkles bilaterally. Motor: He moves his right arm and left leg well. Cerebellar: Finger to nose is intact with the right arm. Skin: Warm and dry. Internal Med - H&P Results - Labs CBC & Chem 7: 01/16/17 08:29 01/16/17 08:29
[2017-01-16 14:50] VITALS: BP 99/67
[2017-01-16] MEDS ORDERED: ALPRAZolam 0.25 MG TABLET GTUBE PRN (15:20)
--- NOTE | 2017-01-16 18:58 | Discharge Summary ---
Date of Encounter: 01/16/17 Time of Encounter: 18:50 - Discharge Diagnosis (1) Fracture of humerus Priority: Primary Status: Acute Qualifiers: Encounter type: initial encounter Fracture type: closed Fracture morphology: unspecified fracture morphology Fracture alignment: displaced Laterality: left Qualified Code(s): S42.212A - Unspecified displaced fracture of surgical neck of left humerus, initial encounter for closed fracture (2) Fractured elbow Priority: Secondary Status: Acute Qualifiers: Encounter type: initial encounter Fracture type: closed Laterality: left Qualified Code(s): S42.402A - Unspecified fracture of lower end of left humerus, initial encounter for closed fracture (3) Fracture, ankle Priority: Secondary Status: Acute Qualifiers: Encounter type: initial encounter Fracture type: closed Laterality: right Qualified Code(s): S82.891A - Other fracture of right lower leg, initial encounter for closed fracture (4) Macrocytosis Priority: Secondary Status: Chronic (5) Hypothyroid Priority: Secondary Status: Chronic Qualifiers: Hypothyroidism type: unspecified Qualified Code(s): E03.9 - Hypothyroidism , unspecified - Discharge Medications Prescriptions: ALPRAZolam [Xanax 0.25 MG Tablet] 0.25 mg GTUBE BID #60 tablet HYDROcodone/Acet 5/325 mg [[place] 5-325 mg] 1 tab GTUBE Q4H PRN #120 tab PRN Reason: Pain Home Medications: Amiodarone [Cordarone] 200 mg GTUBE BID 03/20/15 [History] Aspirin 81 mg GTUBE DAILY 03/20/15 [History] Metoprolol [Lopressor] 25 mg GTUBE BID 03/20/15 [History] Lisinopril [Zestril] 10 mg GTUBE DAILY 11/29/16 [History] Levothyroxine [Synthroid] 150 mcg PO DAILY #30 tablet 12/02/16 [Rx] ALPRAZolam [Xanax 0.25 MG Tablet] 0.25 mg GTUBE BID #60 tablet 01/16/17 [Rx] HYDROcodone/Acet 5/325 mg [[place] 5-325 mg] 1 tab GTUBE Q4H PRN #120 tab [Rx] Allergies/Adverse Reactions: Allergies No Known Allergies Allergy (Verified 01/16/17 07:36) Procedures/tests Complete & Pending: Procedures Performed prior 72 hours Category Date Time Status CT elbow LT wo con [CT] Routine Cat Scan 01/16/17 12:56 Completed Date of admission: 01/16/17 10:24 Primary care physician: Aretha Whittington CNP - Patient Status Disposition: Transfer SNF Condition: Fair Functional capacity at discharge: wheelchair bound Overall status at discharge: patient is progressing back to baseline - Discharge Instructions - Diet and Activity Activity: as per physical therapy Diet: other (Jevity or equivalent 5 cans per day follow with 100 mL water.) Hospital course: Mr. Bee is a 76 year old male who sustained a fall while transferring between wheelchair and bed on December 15. He was intoxicated and did not seek medical attention at the time of the fall but awakened this morning with increasing pain in his left arm and right ankle. He was brought emergency room with x-rays showing slightly displaced distal right fibular fracture with soft tissue swelling. There was displaced intra-articular fracture of the lateral condyle of the left humerus with large joint effusion and comminuted slightly displaced fracture of the greater tuberosity. He was admitted to [facility] for ongoing care needs. Initial orders were written by the emergency room physician. I saw him the morning of January 16 and performed the history and physical. X-rays were reviewed by an orthopedist at [facility]. A left elbow CT was recommended. This was done and reportedly showed no fracture. The patient will have follow-up with the orthopedist the morning of January 19. Social service consult was made and arrangements were complete by the afternoon of January 16 for him to be transferred to [facility] for ongoing care needs. He will follow with me there. - Time Spent with Patient Total time spent providing and/or coordinating discharge services: - Constitutional Vitals: Temp Pulse Resp BP Pulse Ox 97.2 F L 98 17 99/67 95 01/16/17 14:48 01/16/17 14:48 01/16/17 14:48 01/16/17 14:48 01/16/17 14:48
--- NOTE | 2017-01-16 19:04 | Physician Discharge Referral ---
ExtendedCare Referral Info Transfer To: [facility] Provider in Charge: Mike Provider in Charge after Transfer: PCP (Mike) Institutional Level of Care: Skilled - Diagnosis (1) Fracture of humerus Priority: Primary Status: Acute (2) Fractured elbow Priority: Secondary Status: Acute (3) Fracture, ankle Priority: Secondary Status: Acute (4) Macrocytosis Priority: Secondary Status: Chronic (5) Hypothyroid Priority: Secondary Status: Chronic Prognosis: Fair Aware of Diagnosis: Patient, Family Aware of Prognosis: Patient, Family - Transfer Medications Prescriptions: ALPRAZolam [Xanax 0.25 MG Tablet] 0.25 mg GTUBE BID #60 tablet HYDROcodone/Acet 5/325 mg [[place] 5-325 mg] 1 tab GTUBE Q4H PRN #120 tab PRN Reason: Pain Home Medications: Amiodarone [Cordarone] 200 mg GTUBE BID 03/20/15 [History] Aspirin 81 mg GTUBE DAILY 03/20/15 [History] Metoprolol [Lopressor] 25 mg GTUBE BID 03/20/15 [History] Lisinopril [Zestril] 10 mg GTUBE DAILY 11/29/16 [History] Levothyroxine [Synthroid] 150 mcg PO DAILY #30 tablet 12/02/16 [Rx] ALPRAZolam [Xanax 0.25 MG Tablet] 0.25 mg GTUBE BID #60 tablet 01/16/17 [Rx] HYDROcodone/Acet 5/325 mg [[place] 5-325 mg] 1 tab GTUBE Q4H PRN #120 tab [Rx] Allergies/Adverse Reactions: Allergies No Known Allergies Allergy (Verified 01/16/17 07:36) - Respiratory Orders Smoking Cessation: Smoking cessation has been advised. For more information, call the [place] Tobacco Quit Line at 1-177-QMTI-NOW. - Lab Orders Lab Orders: Other (include drug levels w/frequency) (Anemia testing, CBC with differential, CMP, TSH on 01/19/2017.) - Mobility Orders Chair - Rehabiliation Orders Rehab Potential: Fair Rehab Orders: Evaluation for Physical Therapy, Evaluation for Occupational Therapy - Diet Orders Tube Feedings (type/amount/rate): Jevity or equivalent 5 cans per day followed by 100 mL water per G-tube. CERTIFICATION: I certify that the transfer of the above named patient to an Extended Care Facility is necessary for the continuing treatment of the diagnosis listed. The above information is true and accurate reflection of patient's current condition. Confidential - Redisclosure prohibited without a patient's written consent.
[2017-01-16] MEDS ORDERED: Lactobacillus 1 EACH CAP.SPRINK PO SCH (21:00)
[2017-01-16] MEDS ORDERED: ALPRAZolam 0.25 MG TABLET GTUBE SCH (21:00)
[2017-01-16] MEDS ORDERED: Cefuroxime PO 250 MG TABLET PO SCH (21:00)
[2017-01-16] MEDS ORDERED: *HR* Amiodarone 200 MG TABLET GTUBE SCH (21:00)
[2017-01-17] MEDS ORDERED: Aspirin 81 MG TAB.CHEW GTUBE SCH (09:00)
[2017-01-17] MEDS ORDERED: Azithromycin 200 MG/5 ML MLS PO SCH (09:00)
== END 2017-01-16 19:29 ==
LOC: INPPIK 07:34 → EMEROOPIK 07:34 → INPPIK 10:27
PROVIDERS: ADMIT Internal Medicine; ATTEND Internal Medicine